=== PATIENT | female | born 1985 | race Caucasian/White ===

== ENCOUNTER 2019-08-17 08:37 | Outpatient (RCR) | payer OTHER, SELFPAY ==
[2019-08-17 10:15] LABS: Hematocrit 32.3 % (37.0-47.0); Hemoglobin 10.8 g/dL (12.0-15.0)
[2019-08-17 10:29] LABS: Glucose 1 Hour PP 50gm Dose 125 mg/dL
[2019-08-17 11:11] LABS: HIV 1/2 Ab P24 Ag Result Negative (Negative)
[2019-08-18] MEDS: RHO(D) IMMUNE GLOBULIN 300 MCG SYRINGE IM (11:04)
== END 2019-11-15 23:59 | disposition home or self-care (01) ==
LOC: ANHLAB 08:37
PROVIDERS: PCP Internal Medicine; Visit Provider Obstetrics & Gynecology Gynecology
DX: Z36.89 Encounter for other specified antenatal screening (principal); Z29.13 Encounter for prophylactic Rho(D) immune globulin; O36.0990 Maternal care for other rhesus isoimmunization, unspecified trimester, not applicable or unspecified; Z3A.00 Weeks of gestation of pregnancy not specified
CPT/HCPCS: 36415; 82306; 82947; 85014; 85018; 86703; 90384; 96372; G0432; J2790

== ENCOUNTER 2019-10-29 08:50 | Outpatient (CLI) | payer OTHER, SELFPAY ==
[2019-10-29 09:11] LABS: Hematocrit 34.7 % (37.0-47.0); Hemoglobin 11.7 g/dL (12.0-15.0); Mean Corpuscular HGB Conc 33.7 g/dl (32-36); Mean Corpuscular Hemoglobin 32.3 pg (26-34); Mean Corpuscular Volume 95.9 fl (80-100); Mean Platelet Volume 8.9 fl (7.4-10.4); Platelet Count Result 151 k/mm3 (150-375); Red Blood Count 3.62 M/mm3 (4.2-5.4); Red Cell Distribution Width 13.2 % (11.5-14.5); White Blood Count 7.3 K/mm3 (4.5-10.0)
[2019-10-29 10:50] LABS: Rapid Plasma Reagin Non-Reactive (NonReactive)
== END 2019-10-29 08:51 | disposition home or self-care (01) ==
PROVIDERS: PCP Internal Medicine; Visit Provider Obstetrics & Gynecology Gynecology
DX: Z34.93 Encounter for supervision of normal pregnancy, unspecified, third trimester (principal); Z3A.00 Weeks of gestation of pregnancy not specified
CPT/HCPCS: 36415; 85027; 86592; 86850; 86880; 86900; 86901; 86902

== ENCOUNTER 2019-10-30 05:31 | Inpatient (IN) | payer OTHER, SELFPAY ==
--- NOTE | 2019-10-16 16:11 | PC.NURSE ---
VERIFIED WITH OR SCHEDULE AND PATIENT--C/S ON 10/30/19 AT 0730 PATIENT GIVEN REQUISITION FOR LAB DRAW ON 10/29/19
[2019-10-30] VITALS (68 sets, daily range): BP systolic 57–113; BP diastolic 32–81; PULSE 53–105; RESP 12–20; TEMP 36.1–37.1; O2SAT 85–100; BMI 25.7
--- NOTE | ~2019-10-30 | CT_ITS ---
EXAMINATION: CT abdomen pelvis wo con EXAM DATE: 10/30/2019 16:56 INDICATION: Recent section. Low blood pressure. TECHNIQUE: Spiral CT of the abdomen and pelvis was performed without contrast. Axial, coronal and s agittal images were reviewed. The dose-length product (DLP) for this examination was 422.19 mGy-cm. The exposure was tailored according to patient size (auto mA exposure control), and iterative recons truction (ASIR) was used as additional dose reduction technique. There is no prior study for compari son. FINDINGS: There is large amount of hyperdense proteinaceous fluid within the anterior lower aspect of the peritoneum consistent with acute hemorrhage. Uncertain how much of this is extraperitoneal, but there is moderate amount of lower density free peritoneal fluid. Heterogeneously enlarged uterus with multiple foci of gas and hyperdense material within the endometrial cavity, probably acut e hemorrhage. Subcutaneous gas along the section site. The liver, spleen, adrenal glands and pancreas are unremarkable. Gallbladder is unremarkable. No bi liary obstruction. There is a 3 mm right inferior calyceal stone. No hydronephrosis. The bladder is collapsed with Macias catheter balloon anchor inside. There is no retroperitoneal or pelvic lymphade nopathy. The appendix is not positively visualized. There is no pericecal inflammatory change to suggest appe ndicitis. The stomach and small bowel are unremarkable. There is moderate to large amount of colon ic stool. No free intraperitoneal gas. The heart is normal in size. There are no pericardial or pleural effusions. The lung bases are unremarkable. The bones are unremarkable. IMPRESSION: 1. Large amount of acute hemorrhage between anterior aspect of uterus and lower abdominal wall, with moderate amount of free peritoneal lower density but proteinaceous fluid. 2. Heterogeneous enlarged uterus with hemorrhage and foci of gas within the uterus. 3. Small right nephrolithiasis. I discussed acute findings with nurse Lowell caring for patient at 10/30/2019 17:12 INSTRUCTIONAL TECHNOLOGIST, has contact leor kimberli for Ambika Mayberry MD and would call her immediately. Reviewed, dictated and finalized at location A. RUCTIONAL TECHNOLOGIST IMPRESSION: 1. Large amount of acute hemorrhage between anterior aspect of uterus and lowe r abdominal wall, with moderate amount of free peritoneal lower density but pro teinaceous fluid. 2. Heterogeneous enlarged uterus with hemorrhage and foci of gas wi thin the uterus. 3. Small right nephrolithiasis. I discussed acute findings with nurse Lowell caring for patient at 10/30/2019 17:12 INSTRUCTIONAL TECHNOLOGIST, has contact information for Ambika Mayberry MD and would call her i mmediately.
--- NOTE | 2019-10-30 05:59 | LDADM ---
This patient, Dasha Sherman, was admitted to Labor/Delivery/Recovery 120 on 10/30/19 at 05:31. Plans for labor, pain management and were discussed with patient. Patient/family oriented to hospital policies and general routines including ID bracelet, bed and alarms, visiting hours, pain management, procedures, bathroom and other care routines, personal items, smoking policy, room service/diet and guest tray routines, infant security routines, and visiting hours. Patient/Family are encouraged to report perceived risks to care and to ask questions if they do not understand what they are told or what they should do. See OBIX for further documentation.
[2019-10-30] MEDS: LACTATED RINGERS 1,000 ML 999 ML IV CONT (06:17)
[2019-10-30] MEDS: LACTATED RINGERS 250 ML 999 ML IVPB (07:00)
--- NOTE | 2019-10-30 07:28 | PM.IMHP ---
H&P: HPI History of Present Illness Chief complaint: Narrative: Dasha Sherman is a 34 year old female A3 here at 39 wk for repeat csection. has been uncomplicated. labs A-; Rubella immune; RPR -; HBSAg-; HIV - PMFSH Past Medical History Medical History (Updated 10/30/19 @ 07:31 by Ambika Mayberry MD) Breast CA rt Surgical History Surgical History (Updated 10/30/19 @ 07:31 by Ambika Mayberry MD) H/O lumpectomy rt breast History of dilatation and curettage x2 Hx of section Family History Family History (Updated 10/16/19 @ 15:49 by Aleta Alanis RN) Mother Family history of blood dyscrasia Father Patient's father is in good health Sibling Patient's sister is in good health H/O cardiac radiofrequency ablation Grandparent Breast cancer Diabetes mellitus Social History Social History (Updated 09/12/19 @ 16:06 by Christy Solis) Smoking status: Never smoker Substance use: never Spiritual care concerns: No Meds Home Medications and Allergies Home Medications Medication Instructions Recorded Confirmed Type 1 tab-cap PO DAILY 09/12/19 10/30/19 History alendronate-vitamin D3 50,000 units PO WEEKLY 09/12/19 10/30/19 History ferrous sulfate 150 mg PO DAILY 09/12/19 10/30/19 History Allergies Allergy/AdvReac Type Severity Reaction Status Date / Time No Known Allergies Allergy Verified 10/16/19 15:45 Vital Signs Vital Signs - 24 hr 10/30/19 05:46 10/30/19 06:00 10/30/19 06:16 Pulse Rate 89 95 92 Blood Pressure 113/69 105/73 97/65 L Exam Const: General: healthy appearing and alert Orientation/consciousness: patient oriented x3 Resp: Effort & Inspection: normal respiratory effort Auscultation: clear to auscultation bilaterally Cardio: Rate: regular rate Rhythm: regular rhythm GI: GI Palp: Yes Soft to palpation, No Tenderness to palpation present (GI) and No Palpable mass present Other: fundus soft, FH 40 cm : External Female Exam: normal external appearance Speculum Exam - Vagina: normal appearance of the vagina and normal vaginal discharge Speculum Exam - Cervix: normal appearance of the cervix Bimanual exam- vagina & uterus: uterine size normal and consistency normal Bimanual Exam- Adnexa, other: normal adnexae and No adnexal tenderness Neuro: General: patient oriented x3 Assessment and Plan Assessment and plan (1) 39 weeks gestation of : Code(s): Z3A.39 - 39 weeks gestation of Status: Acute (2) Previous delivery, antepartum: Code(s): O34.219 - Maternal care for unspecified type scar from previous delivery Status: Acute Assessment and Plan: declines trial of labor and chooses to proceed with repeat csetion
[2019-10-30] MEDS: ceFAZolin 2 GM/D5W 50 ML 2 GM/50 ML BAG IVPB (07:30)
--- NOTE | 2019-10-30 08:21 | PM.OP ---
Procedure Note - Brief Procedure Note - Brief Date of procedure: 10/30/19 Pre-op diagnosis: Post-op diagnosis: same Procedure performed: repeat LTCS Anesthesia: spinal Surgeon: Ambika Mayberry MD Estimated blood loss (mL): 560 Drains: Yes (mcmahan) Packing: No Pathology: none sent Complications: No immediate complications Condition: stable Disposition: PACU Findings: male 8#15oz with 9/9 scores; normal appearing tubes, ovaries, and uterus
--- NOTE | 2019-10-30 08:22 | PM.OBDSVD ---
DS: Diagnosis Admitting Diagnosis Admitting Diagnosis: 39 weeks gestation of Discharge Diagnosis (1) Previous delivery, antepartum: Code(s): O34.219 - Maternal care for unspecified type scar from previous delivery Status: Acute (2) delivery delivered: Code(s): O82 - Encounter for delivery without indication Status: Acute (3) 39 weeks gestation of : Code(s): Z3A.39 - 39 weeks gestation of Status: Acute OB - DS: Summary OB Procedures : Ultrasound OB Procedures Intrapartum: OB Procedures: : Other (return to OR for Exploratory laparotomy secondary to intrabdominal bleeding) Peripartum Data Delivery Method: Section Procedures: Procedures Operation Date: 10/30/19 07:30 <No data on this case meets the specified criteria> complications: none and other (intraabdominal bleeding) Status at Discharge Functional status at discharge: independent ambulation Overall status at discharge: patient is progressing back to baseline Time Spent with Patient Time attestation: Total time spent providing and/or coordinating discharge services: Time spent: Less than 30 minutes Discharge Plan Discharge Attending physician on discharge: Ambika Mayberry Consulting providers: Jace Keen ; Schuyler Riley Discharging Clinician: Ambika Mayberry Anticipated Discharge Date/Time: 11/02/19 08:23 Patient Disposition: Home, Self-Care Activity: may drive after 2 weeks and pelvic rest Diet: regular Wound Care Instructions: incision open to air Discharge Instructions: Education: Mom and Baby Guide Given to: Mother Follow-Up: Call your delivering provider's office for an appointment to be seen in: 1 Week Mom and baby should come to the [facility] for the follow-up appointment. Appointment Date/Time: November 05, 2019 at 11:00 am What to expect at your follow-up visit: Physical Assessment Call [phone] if you are unable to keep your appointment time. BREAST CARE: 1. Wear a snug supportive bra. 2. For engorgement discomfort: Breast Feeding: A. Apply warm moist washcloths B. Express milk as needed to relieve engorgement C. Wear loose clothing 3. For sore nipples: A. Identify correct latch-on B. Apply warm moist washcloths before and after nursing C. Air dry nipples after nursing D. May apply Lansinoh cream to nipples ABDOMINAL INCISION: (if applicable) 1. Allow incision to air dry 2. Do NOT use lotions for powders on your incision 3. When showering, allow soap and water to run over the incision, but do not wash incision EPISIOTOMY/PERINEAL CARE: 1. Until bleeding stops, use your akua bottle after urinating 2. Change your pad frequently throughout the day 3. No tub baths until seen by your physician - You may shower ACTIVITY: 1. Rest as much as possible. 2. Do not exercise or lift anything heavier than your baby (such as laundry or other children.) 3. Avoid stairs or driving as much as possible. 4. Do not put anything into the vagina. No douching, tampons, or sexual activity until seen by physician. NOTIFY PHYSICIAN IF YOU HAVE ANY QUESTIONS OR IF ANY OF THE FOLLOWING SYMPTOMS OCCUR: 1. If your or incision becomes red, swollen, or more painful than what you have experienced in the hospital. 2. If your vaginal bleeding becomes foul smelling. 3. If your vaginal bleeding becomes more heavy than a period or if your bleeding changes from pink to bright red. However, you may pass an occasional walnut-sized clot once or twice for the first week . 4. If you experience a sharp, shooting pain in you calves. 5. If you discover a hard, reddened area on your breast or if you experience flu-like symptoms. DIET: 1. Eat regular, well-balanced
--- NOTE | 2019-10-30 10:35 | PC.NURSE ---
Pt arrived on unit via stretcher accompanied by infant and spouse and taken to room 280. PT transferred to bed via maxi air without difficulty. PT introductions made and plan of care discussed per post op c section, pain management, breast feeding, daily care activities. Welcome packet reviewed and discussed. PT oriented to room and surroundings. PT verbalized understanding of such care.
[2019-10-30] MEDS: KETOROLAC 30 MG/ML VIAL (*BKC) IV PUSH (12:37)
[2019-10-30] MEDS: LANOLIN (LANSINOH) 7.5 GM CREAM 1 APPLIC TOPICAL (12:38)
--- NOTE | 2019-10-30 14:02 | OP_ITS ---
DATE OF PROCEDURE: 10/30/2019 PREOPERATIVE DIAGNOSES: 1. Previous section. 2. Intrauterine at 39 weeks. POSTOPERATIVE DIAGNOSES: 1. Previous section. 2. Intrauterine at 39 weeks. PROCEDURE: Repeat low-transverse section. ANESTHESIA: Spinal. FINDINGS: Male infant, 8 pounds 15 ounces with 9 and 9 scores. Normal-appearing tubes, ovaries, and uterus. ESTIMATED BLOOD LOSS: 560 cc. PATHOLOGY: None. DESCRIPTION OF PROCEDURE: The patient was taken to the operating room, placed under spinal anesthesia in the dorsal supine position with a leftward tilt. Once the anesthesia was deemed adequate, she was prepped and draped in the usual sterile fashion. A Pfannenstiel skin incision was made through the prior incision and carried down to the underlying layer of fascia. Fascia was nicked in the midline with a scalpel and extended laterally using Stone scissors. Ochsners used to tent the fascia, which was then dissected off using sharp dissection. The peritoneum was entered during this process. The peritoneum incision was extended with blunt traction. The bladder blade was placed. The vesicouterine peritoneum was tented, entered with Metzenbaums, and extended laterally. The bladder flap was created digitally. The lower uterine segment was incised in a transverse fashion with a scalpel and extended laterally using blunt traction. Membranes were ruptured. Clear fluid was noted. The 's head was brought up into the incision and while guiding the vertex, the assistant producer applied fundal pressure. The was slowly delivered. The cord was clamped and cut and the infant handed to the waiting nursery nurse. The placenta was removed using manual traction. The uterus was cleared of all clots and debris and exteriorized. The uterine incision was closed using 0 Monocryl in a running locked fashion. Same suture was used to imbricate. Several sutures of 0 Monocryl are required in the left angle due to bleeding. The cul-de-sac was irrigated. The uterus was returned to the abdomen. The incision was again inspected and noted to be hemostatic. The HemaDerm was placed over the bladder flap due to oozing at the bladder flap site. The fascia was then closed using 0 Vicryl in a running fashion. Subcutaneous tissues were irrigated and made hemostatic using Bovie cautery. Skin was closed using 4-0 Vicryl in a subcuticular fashion. Dermaflex was placed over the incision. The patient was taken to Recovery in stable condition. The patient did receive Ancef prior to incision. Sponge, instrument, and needle counts were correct per the OR staff. D I MT: Elena
--- NOTE | 2019-10-30 14:10 | PC.NURSE ---
Consulted with patient, mother reports infant eagerly latched for first feeidng. Reviewed feeding cues, frequencies, duration of feedings, feeding elimination flow sheet, and signs of adequate intake. Demonstrated stimulation techniques to wake for feeding. Assisted with to breast. Reviewed positioning/alignment in cross cradle, holding breast in U hold and guided asymmetrical latch on. was able to latch correctly. Infant nursed eagerly, with steady draws and frequent swallowing noted. Reviewed signs of a correct latch, effective nursing and suck swallow ratio. was able to maintain latch without discomfort to mother. Nipple care reviewed. Instructed mother to call out for RN assistance if she is unable to latch infant for feeding or she has discomfort with nursing. Instructed feeding should be initiated three hours from start of last feeding or if feeding cues are noted before. Mother voiced understanding of information shared. Discussed breast surgery and radiation treatment to right breast with high indication of decreased milk supply to breast. Suggested mother continue to put infant to both breasts each feeding as infant is willing and rotate with each feeding. Continue to observe for all signs of adequate intake and to initiate supplement if infant falls below required weight loss, output or increased jaundice.
--- NOTE | 2019-10-30 14:30 | PC.NURSE ---
Was called to pt's room. PT appeared to have passed out in bed. Was able to be aroused by name and or touch but PT c/o feeling badly and nauseated. V/S taken and blood pressure low. hob lowered, cold compress applied, spo2 100%. IV fluids open wide. PT's blood pressure improved slowly and Dr Mayberry was called and informed of incident. New orders received and noted.
[2019-10-30 15:19] LABS: Hematocrit 26.2 % (37.0-47.0); Hemoglobin 8.9 g/dL (12.0-15.0)
--- NOTE | 2019-10-30 15:20 | PC.NURSE ---
To OR via bed accompanied by spouse. PT alert and awake.
[2019-10-30] MEDS: DEXTROSE 5%/0.45% SOD CHL 1,000 ML 125 ML IV CONT (15:26)
[2019-10-30] MEDS: DEXTROSE 5%/0.45% SOD CHL 1,000 ML 999 ML IV CONT (15:36)
--- NOTE | 2019-10-30 16:10 | PC.NURSE ---
PT c/o feeling badly and passed out in bed for a brief moment and immediately was aroused again by name. V/S taken and blood pressure low again. PT placed in HOB flat, cold compress, sips of 7 up and fluids open. PT stated feeling better again. Spo2 100. blood pressure slowly improving and Dr Spaulding was called.
--- NOTE | 2019-10-30 16:37 | PC.NURSE ---
PT to CAT scan alert and awake via stretcher with techs
--- NOTE | 2019-10-30 17:00 | PC.NURSE ---
PT returned from CAT scan via bed accompanied by jannet
--- NOTE | 2019-10-30 17:15 | PC.NURSE ---
PT NPO for surgery and Dr Mayberry in room explaining up coming procedure to pt and family. Questions answered and permit was signed
--- NOTE | 2019-10-30 17:18 | PM.OBPNVD ---
OB - PN: Subj Subjective Date/time seen: 10/30/19 17:18 Interval history: patient with syncope x 2 CT scan and fluids ordered. CT with intraperitoneal bleed noted. Discussed with patient and family plan to proceed with expl. laparotomy and control of bleeding. Reviewed possible blood transfusion if BP remains low. OB - PN: Obj Data Labs CBC & Chem 7: 10/30/19 15:12 Labs: Laboratory Results - last 24 hr 10/30/19 15:12 Hgb 8.9 L Hct 26.2 L Imaging Radiologist's impression: Impressions Abdomen/Pelvis CT 10/30/19 17:04 IMPRESSION: 1. Large amount of acute hemorrhage between anterior aspect of uterus and lower abdominal wall, with moderate amount of free peritoneal lower density but proteinaceous fluid. 2. Heterogeneous enlarged uterus with hemorrhage and foci of gas within the uterus. 3. Small right nephrolithiasis. I discussed acute findings with nurse Lowell caring for patient at 10/30/2019 17:12 SLEEP LAB TECHNOLOGIST, has contact information for Ambika Mayberry MD and would call her immediately. OB - PN A/P Time Spent With Patient Time: Total time spent is greater than 50% in coordination of care (as documented) at patient's floor/unit and/or counseling patient:
--- NOTE | 2019-10-30 17:48 | P.PNAN_ITS ---
Anes - Initial Pre Proc Eval Procedure: Operation Date: 10/30/19 07:30 Proposed Procedures p Repeat Section - Ambika Mayberry MD Operation Date: 10/30/19 18:30 Proposed Procedures p Abd Hyst Bso Ex Lap Car Rental Clerk - Ambika Mayberry MD Date/Time: 10/30/19 17:48 Surgeon: Ambika Mayberry MD Pre Op Diagnosis: Patient Data Age: 34 Gender: F Height: 5 ft 4 in Weight: 68 kg Last Vital Signs Temp 36.4 C 10/30/19 15:00 Pulse 87 10/30/19 15:08 Resp 16 10/30/19 15:00 BP 78/53 L 10/30/19 15:08 Pulse Ox 99 10/30/19 15:08 Allergies Allergy/AdvReac Type Severity Reaction Status Date / Time No Known Allergies Allergy Verified 10/16/19 15:45 Home Medications Medication Instructions Recorded Confirmed Type 1 tab-cap PO DAILY 09/12/19 10/30/19 History alendronate-vitamin D3 50,000 units PO WEEKLY 09/12/19 10/30/19 History ferrous sulfate 150 mg PO DAILY 09/12/19 10/30/19 History Laboratory Tests 10/30/19 15:12 Hgb 8.9 g/dL L g/dL (12.0-15.0) Hct 26.2 % L % (37.0-47.0) Patient hx anesthesia problems: none Family hx anesthesia problems: none PMFSH Past Medical History Medical History Breast CA rt Surgical History Surgical History H/O lumpectomy rt breast History of dilatation and curettage x2 Hx of section Family History Family History Mother Family history of blood dyscrasia Father Patient's father is in good health Sibling Patient's sister is in good health H/O cardiac radiofrequency ablation Grandparent Breast cancer Diabetes mellitus Social History Social History Smoking status: Never smoker Substance use: never Spiritual care concerns: No Anes - Eval Final PreProcedure Day of Procedure 10/30/19 17:48 Patient weight: normal Heart: regular rate and rhythm Lungs: clear to auscultation Airway: Mallampati scale class II Neurological: alert and oriented Last oral intake: 4 hours ASA classification: II Emergent: yes Anesthetic plan: proceed Anesthesia type and monitoring: general ETT and standard monitoring Informed Consent: The patient's anesthetic plan and its attendant risks and benefits were discussed with the patient/family/POA. Questions were solicited and answers provided to the satisfaction of the patient/family/POA.
[2019-10-30] MEDS: LACTATED RINGERS 1,000 ML 30 ML IV CONT ×3 (18:00→19:18)
--- NOTE | 2019-10-30 19:10 | SUR.OPER ---
laparotomy sponges weight with an evacuated blood total of 2000 ml
--- NOTE | 2019-10-30 19:20 | PM.OP ---
Procedure Note - Brief Procedure Note - Brief Date of procedure: 10/30/19 Pre-op diagnosis: intraabdominal bleeding Post-op diagnosis: same Procedure performed: exploratory laparotomy Anesthesia: GETA Surgeon: Ambika Mayberry MD Estimated blood loss (mL): 1 Drains: Yes (mcmahan) Packing: No Pathology: none sent Complications: No immediate complications Condition: stable Disposition: PACU Findings: 2 Liters of clots and blood evacuated uterine incision c/d/i bladder flap in midline with oozing that resolved with figure of 8 suture 2-0 vicryl
[2019-10-30 21:55] LABS: Hemoglobin 6.8 g/dL (12.0-15.0)
[2019-10-30 21:56] LABS: Hematocrit 20.2 % (37.0-47.0)
--- NOTE | 2019-10-30 22:48 | OP_ITS ---
DATE OF PROCEDURE: 10/30/2019 PREOPERATIVE DIAGNOSIS: Status post delivery, intraabdominal bleeding. POSTOPERATIVE DIAGNOSIS: Status post delivery, intraabdominal bleeding. PROCEDURE: Exploratory laparotomy. ANESTHESIA: General with ET tube. FINDINGS: There are approximately 2 L of blood and clots evacuated from the pelvic and abdominal cavity. The uterine incision was clean dry and intact. The bladder flap has a small area of oozing. The remainder of the pelvis appears grossly normal. ESTIMATED BLOOD LOSS: Zero. Blood clots and blood evacuated 2 L. DESCRIPTION OF PROCEDURE: The patient was taken to the operating room, placed under general anesthesia in the dorsal supine position. She was prepped and draped in the usual sterile fashion. The Pfannenstiel skin incision was nicked in the midline. The glue was peeled off the subcutaneous tissue. Sutures are removed. The fascial incision was opened using Stone scissors. The sutures were removed. The clots and blood are manually removed with addition of suction. Once the visual field is cleared, the uterine incision was inspected and noted to be completely hemostatic. The bladder flap has a minimal area that had been previously cauterized during the that is oozing a [id number] 2-0 Vicryl is placed over this area. It is watched and no further bleeding was noted. The remainder of the pelvis was inspected. No other areas of bleeding are noted. The cul-de-sac is cleared of all clots and debris. The gutters were cleared of all clots and debris. The uterus was returned to the abdomen. The incision was again inspected and noted to be hemostatic. The bladder flap was noted to be hemostatic. The fascia was closed using 0 Vicryl in a running fashion. Subcutaneous tissues were irrigated and made hemostatic using Bovie cautery. Skin was closed using 4-0 Vicryl in a subcuticular fashion. Sterile bandages were applied. Sponge, instrument, needle counts were correct per the OR staff. The Ancef was given prior to skin incision. D I MT: Elena
[2019-10-31] VITALS (10 sets, daily range): BP systolic 81–101; BP diastolic 52–65; PULSE 85–95; RESP 15–18; TEMP 36.3–37.4; O2SAT 97–100
[2019-10-31] MEDS: HYDROMORPHONE HCL 1 MG/ML INJ IV PUSH ×2 (01:36→07:02)
[2019-10-31 06:07] LABS: Basophils Percent Auto 0.2 % (0.2-1.2); Hematocrit 28.4 % (37.0-47.0); Hemoglobin 9.5 g/dL (12.0-15.0); Immature Granulocyte Absolute 0.05 K/mm3 (0.00-0.031); Immature Granulocyte Percent A 0.4 % (0-0.5); Lymphocytes Absolute Auto 1.67 K/mm3 (0.9-3.2); Lymphocytes Percent Auto 14.4 % (18.3-44.2); Mean Corpuscular HGB Conc 33.5 g/dl (32-36); Mean Corpuscular Hemoglobin 30.7 pg (26-34); Mean Corpuscular Volume 91.9 fl (80-100); Mean Platelet Volume 9.4 fl (7.4-10.4); Monocytes Absolute Auto 0.8 K/mm3 (0.1-0.6); Monocytes Percent Auto 7.1 % (2.6-8.5); Neutrophils Absolute Auto 9.1 K/mm3 (1.3-6.7); Neutrophils Percent Auto 77.9 % (45.5-73.1); Platelet Count Result 150 k/mm3 (150-375); Red Blood Count 3.09 M/mm3 (4.2-5.4); Red Cell Distribution Width 14.6 % (11.5-14.5); White Blood Count 11.6 K/mm3 (4.5-10.0)
--- NOTE | 2019-10-31 07:34 | P.PNOB_ITS ---
OB - PN: Subj Subjective Date/time seen: 10/31/19 07:34 Interval history: patient with syncope x 2 CT scan and fluids ordered. CT with intraperitoneal bleed noted. Discussed with patient and family plan to proceed with expl. laparotomy and control of bleeding. Reviewed possible blood transfusion if BP remains low. Patient comments: pain well controlled and other (feeling much better) [place] baby status: doing well OB - PN: Obj Data Labs CBC & Chem 7: 10/31/19 05:27 Labs: Laboratory Results - last 24 hr 10/29/19 10/30/19 10/30/19 21:52 15:12 21:42 WBC RBC Hgb 8.9 L 6.8 L* Hct 26.2 L 20.2 L* MCV MCH MCHC RDW Plt Count MPV Immature Gran % (Auto) Neut % (Auto) Lymph % (Auto) Lares % (Auto) Eos % (Auto) Baso % (Auto) Lymph # (Auto) Lares # (Auto) Eos # (Auto) Baso # (Auto) Abs Immat Gran (auto) Absolute Neuts (auto) Absolute Nucleated RBC Nucleated RBC % Blood Type Crossmatch See Detail 10/31/19 10/31/19 05:27 05:27 WBC 11.6 H RBC 3.09 L Hgb 9.5 L Hct 28.4 L MCV 91.9 MCH 30.7 MCHC 33.5 RDW 14.6 H Plt Count 150 MPV 9.4 Immature Gran % (Auto) 0.4 Neut % (Auto) 77.9 H Lymph % (Auto) 14.4 L Lares % (Auto) 7.1 Eos % (Auto) 0.0 Baso % (Auto) 0.2 Lymph # (Auto) 1.67 Lares # (Auto) 0.8 H Eos # (Auto) 0.0 Baso # (Auto) 0.0 Abs Immat Gran (auto) 0.05 H Absolute Neuts (auto) 9.1 H Absolute Nucleated RBC 0.0 Nucleated RBC % 0.0 Blood Type A Negative Crossmatch Imaging Radiologist's impression: Impressions Abdomen/Pelvis CT 10/30/19 17:04 IMPRESSION: 1. Large amount of acute hemorrhage between anterior aspect of uterus and lower abdominal wall, with moderate amount of free peritoneal lower density but proteinaceous fluid. 2. Heterogeneous enlarged uterus with hemorrhage and foci of gas within the uterus. 3. Small right nephrolithiasis. I discussed acute findings with nurse Lowell caring for patient at 10/30/2019 17:12 HYDROGEN CELL TENDER, has contact information for Ambika Mayberry MD and would call her immediately. OB - PN A/P Plan day: 1 Plan: routine care Comments: s/p 2 units PRBC advance diet and ambulate Time Spent With Patient Time: Total time spent is greater than 50% in coordination of care (as documented) at patient's floor/unit and/or counseling patient: Exam GI: Inspection: distended Percussion: Yes tympanic to percussion Auscultation: Hypoactive bowel sounds present Other: inc c/d/i : Bimanual exam- vagina & uterus: other (Uterus firm, nt @U)
--- NOTE | 2019-10-31 10:25 | PC.NURSE ---
1025 Breast feeding note; mother called nurse to room to assist and evaluate breast feeding as nurse had requested her do to. Mother was shown cross cradle position alignment, with use of nose to nipple latch-on technique, holding breast in ?U? hold and asymmetrical latch on discussing rational for each. Baby awake, eager; several attempts required; cross-cradle position used, then switched to football on mother's L side. Baby latched after several attempts, apparent deep latch; maintained latch and demonstrated vigorous, rhythmic sucking. Mother stated she could feel the difference with a deeper latch; pt's present and also was shown baby at breast with deep latch and rhythmic sucking. Reviewed frequency and duration of feedings, q2-3 hours and on demand, and nipple care. Mother encouraged to call for nurse assistance at any feeding, especially if having difficulty getting infant latched correctly. She agreed and voiced understanding
--- NOTE | 2019-10-31 13:21 | WPDANLDNPN2 ---
Anes-Prog Note L&D-Neuraxial Date/Time: 10/31/19 13:21 Neuraxial medications: intrathecal PF morphine Opiod-related complaints: none Patient feedback: Patient satisfied with post-operative pain management.
--- NOTE | 2019-10-31 13:22 | WPDANLDPN2 ---
Anes-Prog Note L&D Date/Time: 10/31/19 13:22 Comfortable throughout: section Neuraxial method: spinal Epidural/Spinal procedure site: clean & non-tender Neuro status: Neuro function grossly intact. Cardiovascular status: normal Respiratory status: normal Airway patency: baseline Mental status: baseline Post-Op hydration status: normal Vital Signs: Last Vital Signs Temp 37.4 C 10/31/19 11:40 Pulse 93 10/31/19 11:40 Resp 16 10/31/19 11:40 BP 97/61 L 10/31/19 11:40 Pulse Ox 99 10/31/19 11:40 I/O: Intake & Output 10/30/19 10/31/19 10/31/19 23:59 07:59 15:59 Intake Total 1200 0 770 Output Total 230 1100 1700 Balance 970 -1100 -930 Post-procedural complaints: none Patient feedback: Patient satisfied with anesthetic care.
[2019-10-31] MEDS: RHO(D) IMMUNE GLOBULIN 300 MCG SYRINGE IM (13:32)
[2019-10-31] MEDS: POLYSACCHARIDE IRON COMPLEX 150 MG CAPSULE PO (19:37)
[2019-10-31] MEDS: DOCUSATE SODIUM 100 MG CAPSULE PO (19:37)
[2019-10-31] MEDS: SIMETHICONE 80 MG TAB.CHEW PO (23:57)
[2019-11-01] MEDS: MULTIVIT/MIN/PREN/FOL AC/IRON TABLET 1 TAB PO (07:13)
[2019-11-01] MEDS: SIMETHICONE 80 MG TAB.CHEW PO ×5 (07:13→22:25)
[2019-11-01] MEDS: DOCUSATE SODIUM 100 MG CAPSULE PO ×2 (07:13→17:22)
[2019-11-01] MEDS: POLYSACCHARIDE IRON COMPLEX 150 MG CAPSULE PO ×2 (07:13→17:22)
[2019-11-01] MEDS: LANOLIN (LANSINOH) 7.5 GM CREAM 1 APPLIC TOPICAL (07:14)
[2019-11-01] MEDS: IBUPROFEN 600 MG TABLET PO ×2 (07:14→14:42)
--- NOTE | 2019-11-01 07:49 | PM.OBPNVD ---
OB - PN: Subj Subjective Date/time seen: 11/01/19 07:49 Interval history: . Patient comments: no complaints and pain well controlled baby status: nursing well OB - PN: Obj Data Labs CBC & Chem 7: 10/31/19 05:27 Labs: Laboratory Results - last 24 hr 10/31/19 05:27 Blood Type A Negative Antibody Screen Negative Screen Negative Baby's Blood Type A pos Baby's AVELINA Negative Doses of RhIg Required 1 OB - PN A/P Plan day: 2 Plan: routine care Comments: Plans OC's for BC Time Spent With Patient Time: Total time spent is greater than 50% in coordination of care (as documented) at patient's floor/unit and/or counseling patient: Exam GI: Inspection: distended Percussion: Yes tympanic to percussion Other: inc c/d/i : Bimanual exam- vagina & uterus: other (Uterus firm, nt @U)
[2019-11-01 08:45] VITALS: BP 100/66; PULSE 109; RESP 16; TEMP 37.7; O2SAT 97
[2019-11-01 20:30] VITALS: BP 101/70; PULSE 83; RESP 16; TEMP 36.4; O2SAT 100
[2019-11-02] MEDS: IBUPROFEN 600 MG TABLET PO ×2 (00:36→07:01)
[2019-11-02] MEDS: MULTIVIT/MIN/PREN/FOL AC/IRON TABLET 1 TAB PO (07:00)
[2019-11-02] MEDS: DOCUSATE SODIUM 100 MG CAPSULE PO (07:01)
[2019-11-02] MEDS: POLYSACCHARIDE IRON COMPLEX 150 MG CAPSULE PO (07:01)
[2019-11-02] MEDS: SIMETHICONE 80 MG TAB.CHEW PO (07:05)
[2019-11-02 08:30] VITALS: BP 92/58; PULSE 87; RESP 16; TEMP 37.3; O2SAT 100
--- NOTE | 2019-11-02 10:30 | PC.NURSE ---
Mother is able to independently latch infant with appropriate positioning/alignment. She denies any nipple discomfort, is feeding as required and waking to feed if needed. has had several effective feedings followed with supplementation by mother choice in the past 24 hours, and is currently meeting outcomes for weight, output, jaundice and feeding frequencies. Mother states she feels confident to continue effective at home. Reviewed transition to breast milk, signs of adequate intake, and engorgement/relief. Instructed to call ICP if intake/output less than required. Reviewed regular medications mother is taking. Information provided per Lyudmila. Reviewed community resources on the [facility] website and in the Mom/Baby guide. Information on outpatient services provided. Mother states she does not plan to put to right breast. Discussed right breast and ways to stop milk production if it should come in. Mother has no further questions at this time.
--- NOTE | 2019-11-02 10:44 | PC.NURSE ---
Patient viewed the discharge video Mother & Baby Care, The First Two Weeks . Patient was given the opportunity and encouraged to ask questions. Patient verbalized understanding of information shared and has been given the mother/baby guide for home reference.
--- NOTE | 2019-11-02 11:57 | PM.OBPNVD ---
OB - PN: Subj Subjective Date/time seen: 11/02/19 11:57 Interval history: . patient denies lightheaded or dizziness feels fine desires home Patient comments: pain well controlled and tolerating diet OB - PN: Obj Data Labs CBC & Chem 7: 10/31/19 05:27 Labs: Laboratory Results - last 24 hr 10/29/19 21:52 Crossmatch See Detail OB - PN A/P Assessment and Plan (1) delivery delivered: Code(s): O82 - Encounter for delivery without indication Status: Acute Assessment and Plan: d/c home ontinue iron supplements f/u in 1 week. Time Spent With Patient Time: Total time spent is greater than 50% in coordination of care (as documented) at patient's floor/unit and/or counseling patient: Exam GI: Other: incision clean and dry, fundus firm at umbilicus
[2019-11-05 11:20] VITALS: BP 107/66; PULSE 96; RESP 18; TEMP 36.6
== END 2019-11-02 14:55 | disposition home or self-care (01) | DRG 787 ==
LOC: ANHLDR 08:24 → ANHOB2 11-02 21:06
PROVIDERS: Obstetrics & Gynecology; Admitting Provider Obstetrics & Gynecology Gynecology; PCP Internal Medicine; Visit Provider Obstetrics & Gynecology
PROC: 10D00Z1 Extraction of Products of Conception, Low, Open Approach (ICD-10-PCS; CPT 59514; principal; 2019-10-30 07:30)
PROC: 0UT94ZZ Resection of Uterus, Percutaneous Endoscopic Approach (ICD-10-PCS; principal; 2019-10-30 18:30)
DX: O34.211 Maternal care for low transverse scar from previous cesarean delivery (principal); O72.1 Other immediate postpartum hemorrhage; Z37.0 Single live birth; Z3A.39 39 weeks gestation of pregnancy; Z85.3 Personal history of malignant neoplasm of breast
CPT/HCPCS: 36415; 36430; 74176; 85014; 85018; 85025; 86850; 86900; 86901; 86920; 90384; A9270; J0131; J0330; J0690; J1170; J1200; J1885; J2210; J2250; J2274; J2370; J2405; J2590; J2704; J2790; J3010; J7120; P9016

== ENCOUNTER 2020-09-12 08:30 | Outpatient (RCR) | payer OTHER, SELFPAY ==
--- NOTE | 2020-07-18 16:24 | PTOPEVAL ---
PHYSICAL THERAPY EVALUATION Thank you for referring Dasha Sherman to [facility].? Dasha was evaluated today with a dx of right arm pain/finger tingling. The patient is scheduled to be seen for therapy? 1 x/week for 5 weeks (patient preference for 1x a week). Please review, sign, date and return this plan of care GARCIA. I agree with and certify that the following plan of care is medically necessary. Referring Physician Date Attending Provider: NAVI Braden *PT Outpatient Evaluation Start: 07/18/20 14:04 Freq: Status: Active Protocol: Document 07/18/20 14:04 MLV (Rec: 07/18/20 15:08 [facility] [id number]) Assessment Status Evaluation Evaluation Information Problem Diagnosis right arm pain Onset 1 month Cause none Additional Evaluation Detail Patient has a hx of right arm pain from overuse on the computer for work. The patient began having tingling at her right hand 1 month ago in addition to the pain now. Tingling is at 4/5 digits and it comes and goes. tingling is more prevalent with writing and computer use. Patient denies neck issues. 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 Diagnostic Tests X-Rays For This Problem Yes: 2 years ago; no findings Previous Treatments Previous Treatments For This Problem no treatments to any of right UE/neck Pain Assessment Timing of Pain Assessment Timing of Pain Assessment Assessment Pain Scale Pain Scale Used Numeric (1 - 10) Self Report Pain Assessment Right Arm(s) Reported Pain Level 0 Pain Description Aching,Throbbing Radicular Pain Location elbow to forearm pain Pain Frequency Chronic Greatest Pain Intensity 5 Pain Aggravating Factors Exercise/Activity Other Pain Aggravating Factors opening jars Pain Behaviors Grimacing Pain Score Pain Score 0: Self Report Interventions Used Pain Relief Interventions Used By Inactivity/Rest,Splinting Patient Upper Extremity Muscle Strength Testing General Upper Extremity Strength Gross Upper Extremity Strength Comments gross kiln mechanic 46lbs vero.; 3 finger pinch left 9lbs, right 5lbs vero. elbows and shoulders 4+/5
--- NOTE | 2020-08-20 15:43 | PTOPEVAL ---
PHYSICAL THERAPY RE-ASSESSMENT Thank you for referring Dasha Sherman to [facility].? Dasha was reassessed today for the diagnosis of right forearm pain. The patient is to continue therapy and is scheduled to be seen for therapy? 1 x/week for 4 more weeks. The frequency of treatment is patient requested due to work demands. Please review, sign, date and return this plan of care GARCIA. I agree with and certify the following plan of care. Referring Physician Date Attending Provider: NAVI Braden *PT Outpatient Re-Evaluation Start: 07/18/20 14:04 Freq: Status: Active Protocol: Document 08/20/20 14:30 MLV (Rec: 08/20/20 15:38 MLV [email or web address]) Assessment Status Re-evaluation Evaluation Information Problem Additional Evaluation Detail Patient reports overall improvement at 50%. The patient still has pain with repetitive wrist activities but pain is 0/10 if wearing brace during activity. the patient just started using the brace since last treatment- after PT re-encouraged patient to pursue its use. Patient feels the therapy is helping and needs more to achieve maximal relief Pain Assessment Timing of Pain Assessment Timing of Pain Assessment Assessment Pain Scale Pain Scale Used Numeric (1 - 10) Self Report Pain Assessment Right Arm(s) Reported Pain Level 0 Pain Description Aching Radicular Pain Location right forearm pain Pain Frequency Acute Greatest Pain Intensity 5 Pain Level Goal 0 Other Pain Aggravating Factors repetitive tasks using wrist Additional Pain Comments no pain with activity if wearing brace;DASH improved to 20% Pain Score Pain Score 0: Self Report Interventions Used Interventions Used By Clinicians Education,Electrical Stimulation,Exercise,Heat, Manual Therapy Techniques Pain Relief Interventions Used By Exercise,Inactivity/Rest, Patient Splinting Upper Extremity Range of Motion General Upper Extremity Range of Motion Reason Not Measured WNL/Left,WNL/Right Upper Extremity Muscle Strength Testing General Upper Extremity Strength Gross Upper Extremity Strength Comments #3 finger pinch left 9lbs, right 8lbs (improved at right) Palpation Assessment Palpation Palpation 75% decrease in right wrist
--- NOTE | 2020-09-12 11:20 | PTOPEVAL ---
PHYSICAL THERAPY DISCHARGE SUMMARY Thank you for referring Dasha Sherman to [facility].? The patient has been seen for therapy?8 visits for right forearm pain/tightness. The patient has met her goals and therapy is discontinued. Please review, sign, date and return this plan of care GARCIA. I agree with and certify the following plan of care. Referring Physician Date Attending Provider: NAVI Braden *PT Outpatient Discharge Start: 07/18/20 14:04 Freq: Status: Complete Protocol: Document 09/12/20 08:30 MLV (Rec: 09/12/20 11:20 [email or web address] [email or web address]) Assessment Status Discharge Evaluation Information Problem Additional Evaluation Detail Patient feels she is a lot better than at her eval and can continue her exercises and use of the brace to get maximal recovery. DASH disability score improved to 7 % from 20% at eval. Pain Assessment Timing of Pain Assessment Timing of Pain Assessment Assessment Self Report Self Report Pain Level 0 Pain Score Pain Score 0: Self Report Upper Extremity Range of Motion General Upper Extremity Range of Motion Reason Not Measured WNL/Left,WNL/Right Upper Extremity Muscle Strength Testing General Upper Extremity Strength Reason Not Measured WFL/Left,WFL/Right Gross Upper Extremity Strength Comments 3 finger pinch left 9lbs, right 9lbs (improved at right) Palpation Assessment Palpation Palpation 85% decrease in right wrist extensor muscle tightness, atrophy decreased right forearm muscles PT Clinical Summary Mrs. Sherman has completed 8 visits for right forearm pain and has improved in all aspects of treatment. The patient is independent and compliant with home exercises, use of heat and bracing. The patient is able to continue on her own for maximal recovery potential- no further skilled PT needed at this time. D/C PT with goals essentially met.
== END 2020-09-15 13:36 | disposition home or self-care (01) ==
LOC: ANHPT 08:30
PROVIDERS: PCP Internal Medicine; Visit Provider Clinical Nurse Specialist
DX: M79.601 Pain in right arm (principal)
CPT/HCPCS: 97014; 97110; 97140; 97161; G0283

== ENCOUNTER 2022-02-04 12:55 | Outpatient (CLI) | payer OTHER, SELFPAY ==
[2022-02-04 18:36] LABS: Basophils Percent Auto 0.4 % (0.2-1.2); Eosinophils Absolute Auto 0.2 K/mm3 (0-0.3); Eosinophils Percent Auto 2.5 % (0-4.4); Hematocrit 38.1 % (37.0-47.0); Hemoglobin 12.7 g/dL (12.0-15.0); Immature Granulocyte Absolute 0.02 K/mm3 (0.00-0.031); Immature Granulocyte Percent A 0.3 % (0-0.5); Lymphocytes Absolute Auto 2.15 K/mm3 (0.9-3.2); Lymphocytes Percent Auto 27.8 % (18.3-44.2); Mean Corpuscular HGB Conc 33.3 g/dl (32-36); Mean Corpuscular Hemoglobin 31.4 pg (26-34); Mean Corpuscular Volume 94.3 fl (80-100); Mean Platelet Volume 8.7 fl (7.4-10.4); Monocytes Absolute Auto 0.6 K/mm3 (0.1-0.6); Monocytes Percent Auto 7.5 % (2.6-8.5); Neutrophils Absolute Auto 4.8 K/mm3 (1.3-6.7); Neutrophils Percent Auto 61.5 % (45.5-73.1); Platelet Count Result 278 k/mm3 (150-375); Red Blood Count 4.04 M/mm3 (4.2-5.4); Red Cell Distribution Width 12.4 % (11.5-14.5); White Blood Count 7.7 K/mm3 (4.5-10.0)
[2022-02-04 18:54] LABS: Hemoglobin A1C 5.1 % (<5.7)
[2022-02-04 19:01] LABS: Vitamin D 25 Hydroxy 71.3 ng/mL
[2022-02-04 19:22] LABS: Hepatitis B Surface Antigen Negative (Negative); Rubella IgG Antibody 11.1 IU/ML
[2022-02-04 19:27] LABS: HIV 1/2 Ab P24 Ag Result Negative (Negative)
[2022-02-04 19:33] LABS: Hepatitis C Virus Antibody Negative (Negative)
[2022-02-05 06:10] LABS: Rapid Plasma Reagin Non-Reactive (NonReactive)
== END 2022-02-04 12:56 | disposition home or self-care (01) ==
PROVIDERS: PCP Internal Medicine; Visit Provider Advanced Practice Midwife
DX: Z36.9 Encounter for antenatal screening, unspecified (principal); Z3A.00 Weeks of gestation of pregnancy not specified
CPT/HCPCS: 36415; 82306; 83036; 85025; 86592; 86703; 86762; 86803; 86850; 86880; 86900; 86901; 86902; 87340; G0432

== ENCOUNTER 2022-05-28 07:53 | Outpatient (CLI) | payer OTHER, SELFPAY ==
[2022-05-28 09:37] LABS: Hematocrit 36.8 % (37.0-47.0); Hemoglobin 12.2 g/dL (12.0-15.0)
[2022-05-28 09:57] LABS: Glucose 1 Hour PP 50gm Dose 149 mg/dL
[2022-05-28 10:36] LABS: HIV 1/2 Ab P24 Ag Result Negative (Negative)
== END 2022-05-28 07:54 | disposition home or self-care (01) ==
LOC: ANHLAB 07:57
PROVIDERS: PCP Internal Medicine; Visit Provider Obstetrics & Gynecology Gynecology
DX: Z36.9 Encounter for antenatal screening, unspecified (principal)
CPT/HCPCS: 36415; 82947; 85014; 85018; 86703; G0432

== ENCOUNTER 2022-05-30 07:47 | Outpatient (RCR) | payer OTHER, SELFPAY ==
[2022-05-30] MEDS: RHO(D) IMMUNE GLOBULIN 300 MCG/2 ML SYRINGE IM (11:11)
== END 2022-05-30 08:00 | disposition home or self-care (01) ==
LOC: ANHOBOP 07:47
PROVIDERS: PCP Internal Medicine; Visit Provider Obstetrics & Gynecology Gynecology
DX: Z29.13 Encounter for prophylactic Rho(D) immune globulin (principal); O36.0190 Maternal care for anti-D [Rh] antibodies, unspecified trimester, not applicable or unspecified; Z3A.00 Weeks of gestation of pregnancy not specified
CPT/HCPCS: 36415; 85461; 86880; 90384; 96372; J2790

== ENCOUNTER 2022-06-07 07:04 | Outpatient (CLI) | payer OTHER, SELFPAY ==
[2022-06-07 07:37] LABS: Glucose Fasting Gestational 85 mg/dL (>/=95)
[2022-06-07 09:08] LABS: Glucose 1 Hour Gest 108 mg/dL (>/=180)
[2022-06-07 10:04] LABS: Glucose 2 Hour Gest 109 mg/dL (>/= 155)
[2022-06-07 11:07] LABS: Glucose 3 Hour Gest 98 mg/dL (>/=140)
== END 2022-06-07 07:05 | disposition home or self-care (01) ==
PROVIDERS: PCP Internal Medicine; Visit Provider Obstetrics & Gynecology Gynecology
DX: O99.810 Abnormal glucose complicating pregnancy (principal); Z3A.00 Weeks of gestation of pregnancy not specified
CPT/HCPCS: 36415; 82951; 82952

== ENCOUNTER 2022-07-24 11:23 | Outpatient (RCR) | payer OTHER, SELFPAY ==
[2022-07-24 16:18] VITALS: BP 106/65; PULSE 84
== END 2022-08-27 13:45 | disposition home or self-care (01) ==
LOC: ANHOBOP 11:23
PROVIDERS: PCP Internal Medicine; Visit Provider Obstetrics & Gynecology Gynecology
DX: O98.513 Other viral diseases complicating pregnancy, third trimester (principal); U07.1 COVID-19; Z3A.36 36 weeks gestation of pregnancy
CPT/HCPCS: 59025

== ENCOUNTER 2022-08-11 12:17 | Outpatient (CLI) | payer OTHER, SELFPAY ==
[2022-08-11 12:39] LABS: Hematocrit 35.1 % (37.0-47.0); Hemoglobin 11.9 g/dL (12.0-15.0); Mean Corpuscular HGB Conc 33.9 g/dl (32-36); Mean Corpuscular Hemoglobin 32.2 pg (26-34); Mean Corpuscular Volume 95.1 fl (80-100); Mean Platelet Volume 8.9 fl (7.4-10.4); Platelet Count Result 156 k/mm3 (150-375); Red Blood Count 3.69 M/mm3 (4.2-5.4); Red Cell Distribution Width 12.7 % (11.5-14.5); White Blood Count 7.9 K/mm3 (4.5-10.0)
[2022-08-12 12:05] LABS: Rapid Plasma Reagin Non-Reactive (NonReactive)
== END 2022-08-11 12:18 | disposition home or self-care (01) ==
LOC: ANHLAB 12:20
PROVIDERS: PCP Internal Medicine; Visit Provider Advanced Practice Midwife
DX: Z34.93 Encounter for supervision of normal pregnancy, unspecified, third trimester (principal); Z3A.00 Weeks of gestation of pregnancy not specified
CPT/HCPCS: 36415; 85027; 86592; 86850; 86880; 86900; 86901

== ENCOUNTER 2022-08-12 05:28 | Inpatient (IN) | payer OTHER, SELFPAY ==
[2022-08-12] VITALS (35 sets, daily range): BP systolic 88–129; BP diastolic 56–94; PULSE 31–119; RESP 16–20; TEMP 36.2–37.3; O2SAT 80–100; BMI 26.5
[2022-08-12] MEDS: LACTATED RINGERS 1,000 ML 125 ML IV CONT ×2 (06:39→08:43)
--- NOTE | 2022-08-12 06:58 | P.PNAN_ITS ---
Anes - Initial Pre Proc Eval Procedure: Operation Date: 08/12/22 07:30 Proposed Procedures p Repeat Section with Possible Tubal Ligation - Ambika Mayberry MD Date/Time: 08/12/22 06:58 Surgeon: Ambika Mayberry MD Pre Op Diagnosis: C/S Patient Data Age: 37 Gender: F Height: 1.6 m Weight: 68 kg Last Vital Signs Pulse 89 08/12/22 06:31 BP 98/64 L 08/12/22 06:31 Allergies Allergy/AdvReac Type Severity Reaction Status Date / Time No Known Allergies Allergy Verified 10/30/19 18:18 Home Medications Medication Instructions Recorded Confirmed Type 1 tab-cap PO DAILY 09/12/19 07/02/20 History cholecalciferol (vitamin D3) 50 2,000 unit PO DAILY 07/02/20 07/02/20 History mcg (2,000 unit) capsule loratadine 10 mg tablet (Claritin) 10 mg PO DAILY 07/24/22 07/24/22 History Patient hx anesthesia problems: none Family hx anesthesia problems: none Results Review: All pre-operative results and documents have been reviewed as part of the pre- operative evaluation. PMFSH Past Medical History Medical History Breast CA rt Surgical History Surgical History H/O lumpectomy rt breast History of dilatation and curettage x2 Hx of section Family History Family History Mother Family history of blood dyscrasia Father Patient's father is in good health Sibling Patient's sister is in good health H/O cardiac radiofrequency ablation Grandparent Breast cancer Diabetes mellitus Social History Social History Smoking status: Never smoker Second hand tobacco smoke exposure: No Substance use: never Lack of Transportation: No Lack of Food: Never True Current Housing: I Do Not Have Housing Concerned About Future Housing: No Difficulty Paying Gas/Electric Bills: No Difficulty Paying for Meds: No Currently Unemployed: No Education: Master's Degree or Higher Difficulty w/ Childcare or Family Care: No Spiritual care concerns: No Anes - Eval Final PreProcedure Day of Procedure 08/12/22 06:58 Patient weight: normal Heart: regular rate and rhythm Lungs: clear to auscultation Airway: Mallampati scale class II Neurological: alert and oriented Last oral intake: >/= 8 hours ASA classification: II Emergent: no Anesthetic plan: proceed Anesthesia type and monitoring: regional spinal and standard monitoring Results Review: All pre-operative results and documents have been reviewed as part of the pre- operative evaluation. Informed Consent: The patient's anesthetic plan and its attendant risks and benefits were discussed with the patient/family/POA. Questions were solicited and answers provided to the satisfaction of the patient/family/POA.
--- NOTE | 2022-08-12 07:02 | WPDHPUPDATE1 ---
History and Physical Update Update Date/Time: 08/12/22 07:02 History and Physical has been reviewed, including an updated exam of the patient. There are NO changes in the patient's condition. Risks, benefits, and alternatives have been discussed and questions answered. Patient agrees to proceed with procedure.
--- NOTE | 2022-08-12 07:03 | PM.IMHP ---
H&P: HPI History of Present Illness Date/Time: 08/12/22 07:03 Chief Complaint: Repeat section and tubal ligation Narrative: The patient is a 37-year-old 6 para 2 abortus 3 being admitted at 39 weeks for repeat section. In addition the patient has completed her childbearing and wishes to proceed with tubal ligation. Risks were reviewed. Patient is aware the tubal is a permanent and irreversible sterilizing procedure. In the rare instance that the tubal fails, she was also aware of the increased risk for ectopic . This was conceived through in vitro fertilization. labs A negative, RPR negative, hepatitis-B surface antigen negative, HIV negative, rubella immune, group B strep positive. Patient has had COVID during and monitoring has been normal. Level 2 ultrasound revealed elevated Dopplers at the aortic arch that was determined by Maternal- Medicine to be a likely normal variant they do recommend a echocardiogram after discharge. Review of Systems Review of Systems: not repeated day of surgery; patient states no changes in status Good movement no contractions PMFSH Past Medical History Medical History (Updated 08/12/22 @ 07:09 by Ambika Mayberry MD) Breast CA rt Surgical History Surgical History (Updated 08/12/22 @ 07:09 by Ambika Mayberry MD) H/O lumpectomy rt breast followed by radiation History of dilatation and curettage x3 spontaneous 2009; molar 2010; spontaneous 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 Hx of section 2011 for breech August 17, 2020 repeat complicated by returned to OR with exploratory laparotomy for bleeding Family History Family History Mother Family history of blood dyscrasia Father Patient's father is in good health Sibling Patient's sister is in good health H/O cardiac radiofrequency ablation Grandparent Breast cancer Diabetes mellitus Social History Social History Smoking status: Never smoker Second hand tobacco smoke exposure: No Substance use: never Lack of Transportation: No Lack of Food: Never True Current Housing: I Do Not Have Housing Concerned About Future Housing: No Difficulty Paying Gas/Electric Bills: No Difficulty Paying for Meds: No Currently Unemployed: No Education: Master's Degree or Higher Difficulty w/ Childcare or Family Care: No Spiritual care concerns: No Meds Home Medications and Allergies Home Medications Medication Instructions Recorded Confirmed Type 1 tab-cap PO DAILY 09/12/19 07/02/20 History cholecalciferol (vitamin D3) 50 2,000 unit PO DAILY 07/02/20 07/02/20 History mcg (2,000 unit) capsule loratadine 10 mg tablet (Claritin) 10 mg PO DAILY 07/24/22 07/24/22 History Allergies Allergy/AdvReac Type Severity Reaction Status Date / Time No Known Allergies Allergy Verified 10/30/19 18:18 Vital Signs Vital Signs - 24 hr 08/12/22 06:31 08/12/22 06:56 Pulse Rate 89 Blood Pressure 98/64 L Oxygen Delivery Room Air Exam Const: General: healthy appearing and alert Orientation/consciousness: patient oriented x3 Resp: Effort & Inspection: normal respiratory effort GI: GI Palp: Yes Soft to palpation and No Tenderness to palpation present (GI) : External Female Exam: normal external appearance Speculum Exam - Vagina: normal appearance of the vagina and normal vaginal discharge Speculum Exam - Cervix: normal appearance of the cervix Bimanual exam- vagina & uterus: consistency normal and other ( fundal height 38cm) Bimanual Exam- Adnexa, other: normal adnexae and No adnexal tenderness Neuro: General: patient oriented x3 Assessment and Plan Assessment and plan (1) 39 weeks gestation of : Code(s): Z3A.3
[2022-08-12] MEDS: ceFAZolin 2 GM/D5W 50 ML 2 GM/50 ML BAG IVPB (07:24)
--- NOTE | 2022-08-12 08:38 | P.OP_ITS ---
Procedure Note - Detailed Date of Procedure 08/12/22 Pre-op Diagnosis Intrauterine at 39 weeks previous section requests sterilization Post-op Diagnosis Same Procedure Performed repeat low-transverse section and bilateral tubal ligation Surgeon Ambika Mayberry MD Anesthesia Spinal ( 1st spinal failed 2nd spinal required) Findings female infant with Apgars of 9 [id number] and 9 [id number] weighing 7lb 11oz; normal-appearing tubes, ovaries, uterus; diastasis recti Description of Procedure The patient is taken to the operating room and placed under spinal anesthesia in the dorsal supine position with a leftward tilt. Once anesthesia was deemed adequate she was prepped and draped in usual sterile fashion. A Pfannenstiel skin incision was made with a scalpel and carried down to the underlying layer of fascia which was nicked in the midline with the scalpel. The incision was extended laterally using Stone scissors. Ochsner was used to tent the fascia which was dissected off using sharp dissection. The peritoneum was entered during this process. The peritoneal incision was extended laterally. The bladder blade is placed and the vesicouterine peritoneum grasped with a Peon. The bladder flap was created using Metzenbaum and blunt dissection. The bladder blade is replaced. The lower uterine segment was incised in a transverse fashion with the scalpel and extended with blunt traction. The membranes are ruptured and clear fluid is noted. The infant's head was delivered through the incision with minimal assistance from above. The infant was fully delivered and the cord is detangled. The cord was noted around the infant's arm under the shoulder and through the legs. The placenta was removed using manual traction. The uterus is cleared of all clots and debris and exteriorized. The uterine i ncision was closed using 0 Monocryl with the same suture used to imbricate. Good hemostasis is noted. The right tube was grasped with a Mariya and using [place] clamp the lower 2/3 are crossclamped and excised. A Lara stitch and a free tie are placed with good hemostasis noted. The identical procedure was performed on the left side. The cul-de-sac is irrigated and the uterus returned to the abdomen the pedicles are again inspected and there was some oozing from the left side this is tied using a Lara stitch with good hemostasis resulting. The pedicles are inspected and observed for approximately a minute as well as the uterine incision and no further bleeding is noted. The rectus muscles are reapproximated using 0 Vicryl in a running stitch from approximately the umbilicus to the symphysis pubis. The fascia was then closed using 0 Vicryl in a running stitch. Subcutaneous tissues were irrigated and made hemostatic using Bovie cautery. The skin is closed using 4-0 Vicryl in a subcuticular fashion and Dermaflex placed over the incision. Sponge, needle, and instruments are counted correct per the OR staff. The patient was taken to recovery in stable condition. Estimated Blood Loss 520 Drains Yes ( Macias catheter) Packing No Pathology Yes ( bilateral tubes) Complications No immediate complications Condition Stable Disposition Floor
--- NOTE | 2022-08-12 08:45 | PM.OBDSVD ---
DS: Admitting Diagnosis Discharge Date 08/15/22 Admitting Diagnosis intrauterine at 39 weeks previous section requests sterilization DS: Discharge Diagnosis Discharge Diagnosis (1) History of : Code(s): Z98.891 - History of uterine scar from previous surgery Status: Acute (2) Encounter for sterilization: Code(s): Z30.2 - Encounter for sterilization Status: Acute (3) 39 weeks gestation of : Code(s): Z3A.39 - 39 weeks gestation of Status: Acute (4) delivery delivered: Code(s): O82 - Encounter for delivery without indication Status: Acute OB - DS: Summary OB Procedures : NST and Ultrasound OB Procedures Intrapartum: low cervical, transverse and Tubal ligation OB Procedures: : None Peripartum Data Delivery Method: Section Procedures: Procedures Operation Date: 08/12/22 07:30 <No data on this case meets the specified criteria> complications: none Status at Discharge Functional status at discharge: independent ambulation Overall status at discharge: patient is progressing back to baseline Time Spent with Patient Time attestation: Total time spent providing and/or coordinating discharge services: DS: Data Data Completed and Pending Pending studies at discharge: Pending at discharge 08/12/22 08:31 Surgical [PTH] Routine Discharge Plan Discharge Attending physician on discharge: Ambika Mayberry Discharging Clinician: Bryant Dawkins Anticipated Discharge Date/Time: 08/14/22 08:46 Patient Disposition: Home, Self-Care Activity: may shower, may drive after 2 weeks and pelvic rest Diet: regular Wound Care Instructions: incision open to air Discharge Instructions: Education: Mom and Baby Guide Given to: Mother Follow-Up: Call your delivering provider's office for an appointment to be seen in: 4 Weeks Mom and baby should come to the [facility] for the follow-up appointment. Appointment Date/Time: August 16, 2022 at 11:00 am What to expect at your follow-up visit: Blood Pressure Check Physical Assessment Call [phone] if you are unable to keep your appointment time. BREAST CARE: * Wear a snug supportive bra. * For engorgement discomfort: Breast Feeding: * Apply warm moist washcloths * Express milk as needed to relieve engorgement * Wear loose clothing * For sore nipples: * Identify correct latch-on * Apply warm moist washcloths before and after nursing * Air dry nipples after nursing * May apply Lansinoh cream to nipples ABDOMINAL INCISION: * Allow incision to air dry * Do NOT use lotions for powders on your incision * When showering, allow soap and water to run over the incision, but do not wash incision PERINEAL CARE: * Until bleeding stops, use your akua bottle after urinating * Change your pad frequently throughout the day * You may take sitz baths several times a day (fill your bathtub with warm water and soak for 20 minutes.) Do NOT bathe in the water * No tub baths until seen by your physician - You may shower ACTIVITY: * Rest as much as possible. * Do not exercise or lift anything heavier than your baby (such as laundry or other children.) * Avoid stairs or driving as much as possible. * Do not put anything into the vagina. No douching, tampons, or sexual activity until seen by physician. NOTIFY PHYSICIAN IF YOU HAVE ANY QUESTIONS OR IF ANY OF THE FOLLOWING SYMPTOMS OCCUR: * If your episiotomy or incision becomes red, swollen, or more painful than what you have experienced in the hospital. * If your vaginal bleeding becomes foul smelling. * If your vaginal bleeding becomes more heavy than a period or if your bleeding changes from pink to bright red. However, you may pass an
[2022-08-12] MEDS: diphenhydrAMINE HCl INJ 50 MG/ML VIAL 25 MG IV PUSH (10:05)
[2022-08-12] MEDS: OXYTOCIN 30 UNITS/NS 500 ML 30 UNITS/500 ML BAG 125 UNITS IV CONT (10:50)
--- NOTE | 2022-08-12 16:23 | PC.NURSE ---
[id number] Introductions were made, then consulted with patient to assess needs related to . Mother led the conversation with her?plans to feed?her infant and the?experience so far. Mother states she latched her shallow earlier and now her left nipple is tender. She is using a nipple gel for soothing comfort given to her by the Primary RN. Mother is not able to breastfeed or pumping her right breast due to a medical history of breast CA in 2013. Resources provided for inpatient and outpatient services using mom/baby guide. Parent were both receptive to reviewing attempting a deeper latch using the sandwich hold and latching after infant demonstrates big, wide, open mouth as if to take a bite of a triple cheeseburger. Encouraged skin to skin, massage touch, burping and stimulating for wakefulness to breastfeed. Reviewed the difference between the stage and 5 months. Mother has a successful history with using only the left breast. Mother is confident with and declines assistance with latch at this time. Mother voiced understanding of information and will call if there is a request for assistance. Reported to primary RN.
[2022-08-12] MEDS: IBUPROFEN 600 MG TABLET PO (20:33)
[2022-08-12] MEDS: HYDROcodone/acetaminophen (*CRX) 5-325 MG TABLET 1 TAB PO (20:34)
[2022-08-13] MEDS: HYDROcodone/acetaminophen (*CRX) 5-325 MG TABLET 1 TAB PO ×3 (01:44→16:42)
[2022-08-13 01:46] VITALS: BP 96/59; PULSE 76; RESP 16; TEMP 36.8; O2SAT 96
[2022-08-13] MEDS: IBUPROFEN 600 MG TABLET PO ×4 (02:00→20:55)
[2022-08-13 05:06] VITALS: BP 101/65; PULSE 67; RESP 16; RESP 18; TEMP 36.4; O2SAT 97
[2022-08-13 07:26] LABS: Basophils Percent Auto 0.4 % (0.2-1.2); Eosinophils Absolute Auto 0.1 K/mm3 (0-0.3); Eosinophils Percent Auto 0.6 % (0-4.4); Hematocrit 30.3 % (37.0-47.0); Hemoglobin 10.3 g/dL (12.0-15.0); Immature Granulocyte Absolute 0.04 K/mm3 (0.00-0.031); Immature Granulocyte Percent A 0.4 % (0-0.5); Lymphocytes Absolute Auto 1.34 K/mm3 (0.9-3.2); Lymphocytes Percent Auto 12.1 % (18.3-44.2); Mean Corpuscular Hemoglobin 32.2 pg (26-34); Mean Corpuscular Volume 94.7 fl (80-100); Mean Platelet Volume 8.5 fl (7.4-10.4); Monocytes Absolute Auto 0.8 K/mm3 (0.1-0.6); Monocytes Percent Auto 6.8 % (2.6-8.5); Neutrophils Absolute Auto 8.8 K/mm3 (1.3-6.7); Neutrophils Percent Auto 79.7 % (45.5-73.1); Platelet Count Result 140 k/mm3 (150-375); Red Cell Distribution Width 12.9 % (11.5-14.5); White Blood Count 11.1 K/mm3 (4.5-10.0)
[2022-08-13 07:50] VITALS: BP 109/70; PULSE 89; RESP 18; TEMP 37.4; O2SAT 98
--- NOTE | 2022-08-13 07:53 | P.PNOB_ITS ---
OB - PN: Subj Subjective Date/time seen: 08/13/22 07:53 Patient comments: no complaints and pain well controlled baby status: doing well OB - PN: Obj Data Labs 08/13/22 07:19 Labs: Laboratory Results - last 24 hr 08/13/22 07:19 WBC 11.1 H RBC 3.20 L Hgb 10.3 L Hct 30.3 L MCV 94.7 MCH 32.2 MCHC 34.0 RDW 12.9 Plt Count 140 L MPV 8.5 Immature Gran % (Auto) 0.4 Neut % (Auto) 79.7 H Lymph % (Auto) 12.1 L [place] % (Auto) 6.8 Eos % (Auto) 0.6 Baso % (Auto) 0.4 Lymph # (Auto) 1.34 [place] # (Auto) 0.8 H Eos # (Auto) 0.1 Baso # (Auto) 0.0 Abs Immat Gran (auto) 0.04 H Absolute Neuts (auto) 8.8 H Absolute Nucleated RBC 0.0 Nucleated RBC % 0.0 OB - PN A/P Plan day: 1 Plan: routine care Time Spent With Patient Time: Total time spent is greater than 50% in coordination of care (as documented) at patient's floor/unit and/or counseling patient: Exam Narrative: inc c/d/i : Bimanual exam- vagina & uterus: other (Uterus firm, nt @U)
[2022-08-13] MEDS: MULTIVIT/MIN/PREN/FOL AC/IRON TABLET 1 TAB PO (07:54)
[2022-08-13] MEDS: DOCUSATE SODIUM 100 MG CAPSULE PO ×2 (07:55→16:42)
[2022-08-13] MEDS: SIMETHICONE 80 MG TAB.CHEW PO ×3 (07:58→23:55)
[2022-08-13] MEDS: HYDROcodone/acetaminophen (*CRX) 10-325 MG TABLET 1 TAB PO ×3 (07:58→21:52)
--- NOTE | 2022-08-13 09:47 | WPDANLDNPN2 ---
Anes-Prog Note L&D-Neuraxial Date/Time: 08/13/22 09:47 Neuraxial medications: intrathecal PF morphine Opiod-related complaints: none Patient feedback: Patient satisfied with post-operative pain management.
--- NOTE | 2022-08-13 09:47 | WPDANLDPN2 ---
Anes-Prog Note L&D Date/Time: 08/13/22 09:47 Comfortable throughout: section Neuraxial method: spinal Epidural/Spinal procedure site: clean & non-tender Neuro status: Neuro function grossly intact. Cardiovascular status: normal Respiratory status: normal Airway patency: baseline Mental status: baseline Post-Op hydration status: normal Vital Signs: Last Vital Signs Temp 36.4 C 08/13/22 05:06 Pulse 67 08/13/22 05:06 Resp 18 08/13/22 05:06 BP 101/65 08/13/22 05:06 Pulse Ox 97 08/13/22 05:06 O2 Del Method Room Air 08/13/22 05:06 Pain score (VAS): 0/10 I/O: Intake & Output 08/12/22 08/13/22 08/13/22 23:59 07:59 15:59 Intake Total 500 700 Output Total 1000 2525 Balance -500 -1828 Post-procedural complaints: none Patient feedback: Patient satisfied with anesthetic care.
--- NOTE | 2022-08-13 14:20 | PC.NURSE ---
[id number] Mother led the conversation with her experience feeding her so far and is demonstrating her ability to independently latch optimally without discomfort to the left breast using cross cradle positioning. Reminded parents to use good handwashing technique to prevent infection. Mother is feeding appropriately for growth of and understands stimulating to eat if needed. Infant has had appropriate feedings in the last 24 hours meets the outcomes for weight, output and jaundice at this time. Mother states she is confident to continue effectively her at home, when to call for assistance, denies any additional assistance or education at this time. Reinforced understanding of milk production, signs of adequate intake, responsive after visualizing feeding cues, the different methods of stimulating infant to breastfeed 2-3 hours after the start of the last feeding, and when to call a provider using the resource of the mom and baby guide. Mother voiced understanding of the education shared.
[2022-08-13 19:25] VITALS: BP 111/70; PULSE 84; RESP 16; TEMP 36.7; O2SAT 98
[2022-08-14] MEDS: HYDROcodone/acetaminophen (*CRX) 5-325 MG TABLET 1 TAB PO ×6 (01:15→23:53)
[2022-08-14] MEDS: RHO(D) IMMUNE GLOBULIN 300 MCG/2 ML SYRINGE IM (04:17)
[2022-08-14] MEDS: SIMETHICONE 80 MG TAB.CHEW PO ×4 (05:22→23:53)
[2022-08-14 09:00] VITALS: BP 99/66; PULSE 82; RESP 18; TEMP 36.4; O2SAT 99
[2022-08-14] MEDS: MULTIVIT/MIN/PREN/FOL AC/IRON TABLET 1 TAB PO (10:09)
[2022-08-14] MEDS: IBUPROFEN 600 MG TABLET PO ×3 (10:09→23:53)
[2022-08-14] MEDS: DOCUSATE SODIUM 100 MG CAPSULE PO ×2 (10:11→17:50)
--- NOTE | 2022-08-14 10:37 | P.PNOB_ITS ---
OB - PN: Subj Subjective Date/time seen: 08/14/22 10:37 Patient comments: no complaints, pain well controlled, tolerating diet and flatus present OB - PN: Obj Data Labs 08/13/22 07:19 Labs: Laboratory Results - last 24 hr 08/13/22 07:19 Blood Type A Negative Antibody Screen TNP Screen Negative Baby's Blood Type O pos Baby's AVELINA Positive Doses of RhIg Required 1 OB - PN A/P Plan day: 1 Plan: routine care Comments: patient doing well H/H stable afebrile, VSS incision C/D/I mcmahan removed, voiding spontaneously continue routine post op care Time Spent With Patient Time: Total time spent is greater than 50% in coordination of care (as documented) at patient's floor/unit and/or counseling patient: Time with patient: less than 15 minutes Review of Systems Constitutional: Constitutional: Reports no additional constitutional complaints Cardiovascular: Cardiovascular: Reports no additional cardiovascular complaints Respiratory: Respiratory: Reports no additional respiratory complaints Gastrointestinal: Gastrointestinal: Reports no additional gastrointestinal c omplaints Genitourinary: Genitourinary: Reports no additional female genitourinary complaints Exam Const: General: comfortable and no acute distress Resp: Effort & Inspection: normal respiratory effort Auscultation: clear to auscultation bilaterally Cardio: Rate: regular rate GI: GI Palp: Yes Soft to palpation, Yes Tenderness to palpation present (GI) (around incision ) and No Guarding due to palpation present (GI) Auscultation: normal bowel sounds Other: incision C/D/I, covered with Dermabond Psych: Appearance: grossly normal Mental Status: mental status grossly normal Affect: normal affect
[2022-08-14 19:25] VITALS: BP 105/63; PULSE 88; RESP 16; TEMP 37.2; O2SAT 98
[2022-08-15] MEDS: SIMETHICONE 80 MG TAB.CHEW PO (05:29)
[2022-08-15] MEDS: HYDROcodone/acetaminophen (*CRX) 5-325 MG TABLET 1 TAB PO ×2 (05:29→10:28)
[2022-08-15 08:30] VITALS: BP 90/56; PULSE 76; RESP 18; TEMP 37; O2SAT 99
[2022-08-15] MEDS: DOCUSATE SODIUM 100 MG CAPSULE PO (10:27)
[2022-08-15] MEDS: IBUPROFEN 600 MG TABLET PO (10:27)
[2022-08-15] MEDS: MULTIVIT/MIN/PREN/FOL AC/IRON TABLET 1 TAB PO (10:27)
[2022-08-16 10:39] VITALS: BP 103/65; PULSE 87; RESP 20; TEMP 37.1; O2SAT 97
== END 2022-08-15 13:21 | disposition home or self-care (01) | DRG 785 ==
LOC: ANHLDR 08:46 → ANHOB2 08-13 12:11 → ANHLDR 08-17 08:56 → ANHOB2 08-17 08:56
PROVIDERS: Admitting Provider Obstetrics & Gynecology Gynecology; PCP Internal Medicine; Visit Provider Student in an Organized Health Care Education/Training Program
PROC: 10D00Z1 Extraction of Products of Conception, Low, Open Approach (ICD-10-PCS; CPT 59514; principal; 2022-08-12 07:30)
DX: O34.211 Maternal care for low transverse scar from previous cesarean delivery (principal); Z37.0 Single live birth; Z3A.39 39 weeks gestation of pregnancy; Z30.2 Encounter for sterilization
CPT/HCPCS: 36415; 85025; 85027; 85461; 86592; 86850; 86880; 86900; 86901; 88302; 90384; A9270; J0131; J0690; J1200; J2210; J2274; J2370; J2405; J2590; J2790; J7120

== ENCOUNTER 2022-10-02 15:21 | Emergency (ER) | payer OTHER, SELFPAY ==
[2022-10-02 15:24] VITALS: BP 112/74; PULSE 77; RESP 18; TEMP 36.8; O2SAT 100
--- NOTE | 2022-10-02 15:43 | ED.FEMALEGU ---
HPI - Female Genitourinary General Chief complaint: Vaginal Bleeding Stated complaint: 7 weeks pp/vb Time Seen by Provider: 10/02/22 15:37 Source: patient and family Mode of arrival: ambulatory Limitations: no limitations History of Present Illness HPI Narrative: 37 years old white female 7 weeks , bilateral tubal ligation, section, been spotting since. Patient had a gush of blood yesterday lasted for about 10 minutes, and today prior to arrival to the emergency room. She denies any fever, chills, nausea, vomiting, abdominal pain or back pain. Patient had her [employer] checkup in 6 weeks and was told that spotting is normal. She denies any lightheadedness or dizziness. Related Data Home Medications Medication Instructions Recorded Confirmed 1 tab-cap PO DAILY 09/12/19 07/02/20 cholecalciferol (vitamin D3) 50 2,000 unit PO DAILY 07/02/20 07/02/20 mcg (2,000 unit) capsule loratadine 10 mg tablet (Claritin) 10 mg PO DAILY 07/24/22 07/24/22 Allergies Allergy/AdvReac Type Severity Reaction Status Date / Time No Known Allergies Allergy Verified 10/30/19 18:18 Review of Systems Review of Systems: All systems reviewed & are unremarkable except as noted in HPI and below PMFSH Past Medical History Medical History Breast CA rt Surgical History Surgical History H/O lumpectomy rt breast followed by radiation History of dilatation and curettage x3 spontaneous 2009; molar 2010; spontaneous 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 Hx of section 2011 for breech August 17, 2020 repeat complicated by returned to OR with exploratory laparotomy for bleeding Family History Family History Mother Family history of blood dyscrasia Father Patient's father is in good health Sibling Patient's sister is in good health H/O cardiac radiofrequency ablation Grandparent Breast cancer Diabetes mellitus Social History Social History Smoking status: Never smoker Second hand tobacco smoke exposure: No Substance use: never Lack of Transportation: No Lack of Food: Never True Current Housing: I Do Not Have Housing Concerned About Future Housing: No Difficulty Paying Gas/Electric Bills: No Difficulty Paying for Meds: No Currently Unemployed: No Education: Master's Degree or Higher Difficulty w/ Childcare or Family Care: No Spiritual care concerns: No Exam Narrative: General appearance: Well-developed, well-nourished Skin: Normal color Head: Normocephalic, nontraumatic Eyes: Clear conjunctiva ENT: Oropharynx normal, ears normal, nose normal Neck: Supple, nontender Chest and respiratory: Airway patent, no respiratory distress, no accessory muscle use Heart: Regular rate/rhythm Abdomen: Soft, nontender, no organomegaly, quiet bowel sounds Vascular: Normal peripheral pulses, normal capillary refill. Musculoskeletal: Normal range of motion, nontender back Neurologic: Alert and oriented ?3, RN TRANSPLANT is normal as tested, no gross motor deficit : Speculum Exam - Vagina: normal appearance of the vagina and vaginal bleeding (Scant vaginal bleeding) Speculum Exam - Cervix: normal appearance of the cervix and Cervical os closed Bimanual Exam- Adnexa, other: no masses Course Consultations Consultation #1: Dr. Dawkins Vaginal spotting and bleeding is expected 7 weeks . Patient can go home and contacted Dr. Bradshaw Tuesday. Date: 10/02/22 Time: 17:43 V
[2022-10-02 16:05] LABS: Basophils Absolute Auto 0.1 K/mm3 (0.0-0.1); Basophils Percent Auto 0.5 % (0.2-1.2); Eosinophils Absolute Auto 0.3 K/mm3 (0-0.3); Hematocrit 37.6 % (37.0-47.0); Hemoglobin 12.3 g/dL (12.0-15.0); Immature Granulocyte Absolute 0.02 K/mm3 (0.00-0.031); Immature Granulocyte Percent A 0.2 % (0-0.5); Lymphocytes Absolute Auto 1.67 K/mm3 (0.9-3.2); Lymphocytes Percent Auto 17.1 % (18.3-44.2); Mean Corpuscular HGB Conc 32.7 g/dl (32-36); Mean Corpuscular Hemoglobin 30.9 pg (26-34); Mean Corpuscular Volume 94.5 fl (80-100); Mean Platelet Volume 8.1 fl (7.4-10.4); Monocytes Absolute Auto 0.8 K/mm3 (0.1-0.6); Monocytes Percent Auto 7.9 % (2.6-8.5); Neutrophils Percent Auto 71.3 % (45.5-73.1); Platelet Count Result 218 k/mm3 (150-375); Red Blood Count 3.98 M/mm3 (4.2-5.4); White Blood Count 9.8 K/mm3 (4.5-10.0)
[2022-10-02 17:05] VITALS: BP 115/74; PULSE 86
[2022-10-02 17:10] VITALS: BP 113/83; PULSE 97
[2022-10-02 17:51] VITALS: BP 113/83; PULSE 86; RESP 16; O2SAT 98
== END 2022-10-02 17:52 | disposition home or self-care (01) ==
PROVIDERS: Emergency Provider Emergency Medicine; PCP Internal Medicine
DX: N93.8 Other specified abnormal uterine and vaginal bleeding (principal); Z85.3 Personal history of malignant neoplasm of breast
CPT/HCPCS: 36415; 85025; 99284